=== PATIENT | female | born 1950 | race Caucasian/White ===

== ENCOUNTER 2017-08-25 06:12 | Day surgery (SDC) | payer MEDICARE, OTHER ==
[2017-08-20 08:08] VITALS: BMI 31.1
[2017-08-25] MEDS ORDERED: Bupivacaine HCl 0.5% PF (10 ml) Inj ONE (07:21)
[2017-08-25] MEDS ORDERED: Lidocaine Hydrochloride 10 ML INJ ONE (07:22)
[2017-08-25] MEDS ORDERED: ceFAZolin 1 gm in NS 2 GM/200 ML BAG IVPB ONE (07:26)
[2017-08-25] MEDS ORDERED: Propofol 10 mg/ml Inj (20 ML) ONE (07:51)
[2017-08-25] MEDS ORDERED: Midazolam 2 MG/2 ML VIAL ONE ×2 (07:51→08:24)
[2017-08-25] MEDS ORDERED: ePHEDrine 50 mg/ml Inj ONE (08:32)
[2017-08-25] MEDS ORDERED: Bacitracin Ointment 30 GM TUBE ONE (09:31)
[2017-08-25] MEDS ORDERED: Bupivacaine HCl 0.25% PF (10 ml) Inj ONE (09:31)
[2017-08-25] MEDS ORDERED: Lactated Ringer's 1,000 ML IV ONE (09:50)
--- NOTE | 2017-08-25 09:53 | PCM.SURG1 ---
Surgeon's Initial Post Op Note - Surgeon's Notes Surgeon: Dr. Houston Sheet Pile Driver Operator: Dr. Emerson Duong PGY-3, Dr. Matt Alvarez PGY-3, Dr. 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 I: 20cc 1:1 mix 2% Lidocaine plain and 0.5% Marcaine plain pre-operatively; 10cc 0.25% Marcaine plain postoperatively. 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
[2017-08-25] MEDS ORDERED: Oxycodone/Acetaminophen 5/325 mg Tab PO PRN ×2 (09:56)
[2017-08-25] MEDS ORDERED: HYDROmorphone 0.5 mg/0.5 ml ISec IVP PRN (10:00)
[2017-08-25] MEDS ORDERED: Lactated Ringer's 1,000 ML IV SCH (10:00)
--- NOTE | 2017-08-25 11:37 | RAD ---
PROCEDURE: Right Foot Radiographs. HISTORY: s/p surgery COMPARISON: None. FINDINGS: BONES: Prior ORIF of the proximal 1st metatarsal with arthrodesis across the 1st metatarsophalangeal joint. No acute fracture. JOINTS: Degenerative change. SOFT TISSUES: Dorsal forefoot soft tissue swelling. OTHER FINDINGS: Inferior plantar calcaneal spur. IMPRESSION: Postsurgical changes involving the 1st metatarsal and 1st proximal phalanx as described above. Dorsal soft tissue swelling.
[2017-08-25 12:37] VITALS: RESP 16
--- NOTE | 2017-08-25 13:32 | PCM.OP ---
Operative Report - Operative Report Date of Surgery/Procedure: 08/25/17 Time of Surgery/Procedure: 07:45 Surgeon: Tadeo Horn DPM Traffic Survey Technician: Emerson Duong DPM PGY-3; Matt CARRASCOM PGY-3; Skye CARRASCOM PGY-1 Anesthesia/Sedation: IV sedation with local Pre-Operative Diagnosis: Right foot- painful arthritis of the 1st metatarsophalangeal joint Post-Operative Diagnosis: Right foot- painful arthritis of the 1st metatarsophalangeal joint Indication for Surgery: The patient is a 67 year-old female with the above diagnoses. She has previously underwent Right foot bunionectomy with an opening base wedge osteotomy with Dr. Horn about 5 years ago. She now presents with painful hallux rigidus. The patient has exhausted conservative treatment at this time and now requests surgical intervention. The patient signed the consent after careful explanation of risks, benefits, complication and alternatives for surgical procedure. No guarantees were given nor implied. The patient received 2g of IV Ancef prior to the procedure. The patients NPO status was confirmed prior to taking pt to the OR. Operative Findings: See below. Preparation: The patient was brought to the operating room and placed on the operating room table in supine position. Time- out was performed for identification of the correct patient and the correct procedure. A well-padded pneumatic ankle tourniquet was placed to the patient' s Right ankle in a supramalleolar position. After induction of IV sedation, the patient received a total of 20cc of a 1:1 mixture of 2% Lidocaine plain and 0.5 % Marcaine plain in local block fashion to the Right foot. The Right foot was then prepped and draped in usual sterile manner. Esmarch was utilized to exsanguinate the patient's Left foot. Pneumatic ankle tourniquet was then inflated to 250 mmHg and procedure began. Procedure/Operation Description: Attention was then directed to the dorsomedial aspect of the Right foot where an approximately 7 cm linear longitudinal incision was made medial and parallel to the tendon of the extensor hallucis longus and involved the contour of the deformity. The incision was deepened through the subcutaneous tissues using sharp and blunt dissection. Care was taken to identify and retract all vital neurovascular structures. All bleeders were cauterized and ligated as necessary. At this time, a linear longitudinal capsulotomy was performed over the dorsal aspect of the first metatarsophalangeal joint. The periosteal and capsular structures were then carefully dissected free of their osseous attachments and reflected medially and laterally thus exposing the head of the first metatarsal and the base of the proximal phalanx into the operative field. A 1.6mm guide wire from the Arthrex tray was then inserted centrally within the metatarsal head and driven into the midshaft region. Using intraoperative fluoroscopy, the proper alignment and depth was verified. Next, an appropriately sized concave reamer was then inserted over the guide wire and the 1st metatarsal head was reamed until all of the articular cartilage was resected. Once this was complete, the guide wire was removed and multiple subchondral drill holes were created within the 1st metatarsal head in order to facilitate healing. Next, the guide wire was then driven centrally into the base of the proximal phalanx. Using intraoperative fluoroscopy, the proper alignment and depth was verified. Next, an appropriately sized convex reamer was then inserted over the guide wire and the phalangeal base was reamed until all of the articular cartilage was resected. Once this was complete, the guidewire was removed and multiple subchondral drill holes were created within the phalangeal base in order to facilitate healing. At this time, a pre-contoured 1st MPJ fusion plate was chosen from the Arthrex tray. The plate was further bent to allow for more dorsiflexed position of the joint. The plate was then placed over the 1st MPJ and temporarily secured to the bone using BB taks. Next, a 1.1mm guide wire was then inserted for the interfragmentary screw placement. The wire was inserted from the medial aspect of the proximal phalanx base and was driven in an oblique fashion across the joint to end at the lateral aspect of the distal 1st metatarsal. The alignment of the wire was verified under fluoroscopy. The previously inserted guide wire was now removed Next, using standard AO principles and techniques, a 3.0mm x20mm partially threaded cannulated screw was now inserted across the fusion site with excellent compression noted. Next, three 3.0mm cortex screws were applied through the non-locking holes of the plate. The BB taks were then removed and two 2.0 mm locking screws were inserted into the threaded holes of the plate. No further motion was present at the 1st MPJ, which rendered the fusion successful. Final radiographs were taken to ensure proper alignment and positioning of the fusion site and both were noted to be excellent. The wound was then flushed with copious amount of sterile normal saline solution. The periosteal and capsular structures were then reapproximated and coapted utilizing 3-0 vicryl. The subcutaneous tissues were then reapproximated and coapted utilizing #4-0 vicryl. The skin was then reapproximated and coapted utilizing 4-0 prolene in an interrupted simple suture technique.The surgical site was now infiltrated with approximately 10cc of 0.5% Marcaine plain. The surgical site was then dressed with xeroform, 4x4 gauze, and kerlix. A well-padded posterior splint was now applied to the RLE while ensuring to maintain the ankle dorsiflexed to 90 degrees.The attending, Dr. Horn, was present throughout the entire case. Estimated Blood Loss: <5cc Complications: None Discharge & Condition: The patient tolerated the anesthesia and procedure well and with no complications. The patient was escorted to the recovery room with vital signs stable and neurovascular status intact to the Right foot. She is to remain non-weightbearing to the Right foot with crutches. This patient is to follow-up with Dr. Horn at his office on an outpatient basis.
[2017-08-25 15:11] VITALS: BP 117/61; PULSE 58; TEMP 97.6; O2SAT 98
== END 2017-08-25 13:08 | disposition home or self-care (01) ==
LOC: C.SDS 06:12
PROVIDERS: ATTEND Podiatrist Foot & Ankle Surgery
DX: M19.071 Primary osteoarthritis, right ankle and foot (principal); M20.21 Hallux rigidus, right foot; M21.611 Bunion of right foot
CPT/HCPCS: 28750; 73630; 82948; 97116; 97161; G8978; G8979; G8980; J0690; J2250; J2704; J3010; J7120